=== PATIENT | female | born 1950 | race Caucasian/White ===

== ENCOUNTER 2020-01-30 21:32 | Emergency (ER) | payer MEDICARE, OTHER ==
[~2020-01-30] VITALS: Ht 157.5 cm; Wt 93.4 kg
[~2020-01-30 21:32] MED LIST: ALBU90OI INH; ALBU90OI6 INH; ASPI81CH PO; BUDE32NIS; BUDE6HFA INH; Benicar Hct 201 EACH PO; CALCA500CH PO; CHOL10002 PO; CLON1; Cheratussin AC118 ML PO; DULO60; DULO60 PO; ESOM20; FISH1000 PO; FURO40 PO; GLUCHON; HYDACE5 PO; HYDR-86 PO; KETO10 PO; MAGOXI400 PO; MELO7.5; NICO21TP TOP; Nexium40 MG PO; OLME20; OLME20 PO; OXYC5 PO; POTCHL10ER PO; PROACE100; Percocet 5-3251 EACH PO; Percocet 7.5-31 EACH PO; ROPI1 PO; TIOT18 INH; VITB100
== END 2020-01-30 23:27 | disposition home or self-care (01) ==
LOC: ER 21:32
DX: S51.811A Laceration without foreign body of right forearm, initial encounter (principal); S01.411A Laceration without foreign body of right cheek and temporomandibular area, initial encounter; I10 Essential (primary) hypertension; F17.200 Nicotine dependence, unspecified, uncomplicated; Z23 Encounter for immunization; Z88.2 Allergy status to sulfonamides; Z88.8 Allergy status to other drugs, medicaments and biological substances; Z79.82 Long term (current) use of aspirin; Z79.899 Other long term (current) drug therapy; W19.XXXA Unspecified fall, initial encounter
CPT/HCPCS: 12013; 90471; 90714; 99283-25

== ENCOUNTER → 2020-08-12 | Outpatient (CLI) | payer MEDICARE, OTHER ==
[2020-08-12 11:18] LABS: Protein, Urine Quantitative 12.9 mg/dL (0.0-11.9)
[2020-08-12 11:22] LABS: Microalbumin, Urine Quant. <5.000 mg/L (0.000-20.000)
== END | disposition home or self-care (01) ==
LOC: LAB 09:44 → LAB SHORT 09:44 → LAB FUT 08-10 15:10
PROVIDERS: Internal Medicine Nephrology
DX: N18.2 Chronic kidney disease, stage 2 (mild) (principal); D63.1 Anemia in chronic kidney disease; N25.81 Secondary hyperparathyroidism of renal origin; E55.9 Vitamin D deficiency, unspecified; E78.00 Pure hypercholesterolemia, unspecified; G60.9 Hereditary and idiopathic neuropathy, unspecified; R76.9 Abnormal immunological finding in serum, unspecified; R94.5 Abnormal results of liver function studies; R94.6 Abnormal results of thyroid function studies
CPT/HCPCS: 81050; 82043; 82570; 84156

== ENCOUNTER → 2021-11-11 | Outpatient (CLI) | payer MEDICARE, OTHER | END | disposition home or self-care (01) | LOC: LAB 15:00 → LAB SHORT 15:00 | DX: R10.9 Unspecified abdominal pain (principal) | CPT/HCPCS: 87086 ==

== ENCOUNTER 2022-07-18 16:53 | Emergency (ER) | payer OTHER, MEDICARE ==
[~2022-07-18] VITALS: Ht 157.5 cm; Wt 83.9 kg
== END 2022-07-18 18:36 | disposition home or self-care (01) ==
LOC: ER 16:53
DX: S40.012A Contusion of left shoulder, initial encounter (principal); S60.222A Contusion of left hand, initial encounter; I10 Essential (primary) hypertension; F17.200 Nicotine dependence, unspecified, uncomplicated; W01.0XXA Fall on same level from slipping, tripping and stumbling without subsequent striking against object, initial encounter; Z79.899 Other long term (current) drug therapy; Z79.82 Long term (current) use of aspirin; Z88.2 Allergy status to sulfonamides; Z88.8 Allergy status to other drugs, medicaments and biological substances
CPT/HCPCS: 73030; 73130

== ENCOUNTER → 2022-12-06 | Outpatient (CLI) | payer MEDICARE, OTHER ==
[2022-12-06 20:59] LABS: Creatinine Urine 45.5 mg/dL (27.00-270.00); Protein, Urine Quantitative 12.6 mg/dL (0.0-11.9)
[2022-12-06 21:02] LABS: Microalbumin, Urine Quant. 8.59 mg/L (0.000-20.000)
== END | disposition home or self-care (01) ==
LOC: LAB SHORT 15:52
PROVIDERS: Internal Medicine Nephrology
DX: N18.30 Chronic kidney disease, stage 3 unspecified (principal); D63.1 Anemia in chronic kidney disease; N25.81 Secondary hyperparathyroidism of renal origin; E55.9 Vitamin D deficiency, unspecified; E78.00 Pure hypercholesterolemia, unspecified
CPT/HCPCS: 81050; 82043; 82570; 84156